=== PATIENT | male | born 1985 | race Caucasian/White ===

== ENCOUNTER 2019-02-04 16:11 | Emergency (ER) | payer OTHER ==
[2019-02-04] MEDS ORDERED: PROMETHAZINE HCL 25 MG TABLET PO ONE (16:44)
[2019-02-04] MEDS ORDERED: OXYCODONE-ACETAMINOPHEN 5-325 MG TABLET PO ONE (16:44)
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
[2019-02-04 18:22] VITALS: BP 125/73
== END 2019-02-04 18:20 | disposition home or self-care (01) ==
LOC: ER 16:11
DX: S93.602A Unspecified sprain of left foot, initial encounter (principal); S81.811A Laceration without foreign body, right lower leg, initial encounter; S40.021A Contusion of right upper arm, initial encounter; V23.4XXA Motorcycle driver injured in collision with car, pick-up truck or van in traffic accident, initial encounter; F17.200 Nicotine dependence, unspecified, uncomplicated; F12.10 Cannabis abuse, uncomplicated
CPT/HCPCS: 99283